=== PATIENT | female | born 1995 ===

== ENCOUNTER 2017-10-23 22:09 | Emergency (ER) | payer MEDICAID ==
[2017-10-23 22:09] VITALS: BMI 28.6
[2017-10-23] MEDS ORDERED: Lactated Ringer's 1,000 ML IV STA (22:59)
[2017-10-23] MEDS ORDERED: Dextrose 5%/Lactated Ringer's 1,000 ML IV SCH (23:00)
--- NOTE | 2017-10-23 23:05 | ED PDOC ---
HPI: Abdomen Time Seen by Provider: 10/23/17 22:31 Chief Complaint (Nursing): Abdominal Pain Chief Complaint (Provider): Abdominal pain History Per: Patient History/Exam Limitations: no limitations Onset/Duration Of Symptoms: Days (2), Persistent Location Of Pain/Discomfort: Diffuse Quality Of Discomfort: "Pain" Associated Symptoms: Nausea, Vomiting, Loss Of Appetite. denies: Fever, Chills , Urinary Symptoms Last Menstral Period: August, , September had spotting but no full period Past Medical History Reviewed: Historical Data, Nursing Documentation, Vital Signs Vital Signs: Last Vital Signs Temp 98.6 F 10/24/17 01:58 Pulse 68 10/24/17 01:58 Resp 16 10/24/17 01:58 BP 112/68 10/24/17 01:58 Pulse Ox 98 10/24/17 01:58 - Medical History PMH: No Chronic Diseases - Surgical History Surgical History: - Family History Family History: States: Diabetes - Social History Current smoker - smoking cessation education provided: No - Immunization History Hx Tetanus Toxoid Vaccination: No Hx Influenza Vaccination: No Hx Pneumococcal Vaccination: No - Home Medications Home Medications: Ambulatory Orders Medication Instructions Recorded oxyCODONE/Acetaminophen [Percocet 1 - 2 tab PO Q6 PRN #20 tab 09/10/14 5/325 mg Tab] Naproxen [Naprosyn] 500 mg PO Q12 PRN #20 tablet 05/03/17 - Allergies Allergies/Adverse Reactions: Allergies Allergy/AdvReac Type Severity Reaction Status Date / Time No Known Allergies Allergy Verified 05/02/17 23:54 Review of Systems ROS Statement: Except As Marked, All Systems Reviewed And Found Negative (and as per HPI) Cardiovascular: Positive for: Light Headedness Gastrointestinal: Positive for: Nausea, Vomiting, Abdominal Pain Neurological: Positive for: Dizziness Physical Exam - Reviewed Nursing Documentation Reviewed: Yes Vital Signs Reviewed: Yes - Physical Exam Appears: Positive for: Non-toxic, No Acute Distress Head Exam: Positive for: ATRAUMATIC, NORMOCEPHALIC Skin: Positive for: Warm, Dry Eye Exam: Positive for: EOMI, PERRL ENT: Negative for: Pharyngeal Erythema, Tonsillar Exudate Neck: Positive for: Painless ROM, Supple Cardiovascular/Chest: Positive for: Regular Rate, Rhythm. Negative for: Murmur Respiratory: Positive for: Normal Breath Sounds. Negative for: Wheezing Gastrointestinal/Abdominal: Positive for: Soft. Negative for: Tenderness, Mass , Distended, Guarding, Rebound Back: Positive for: Normal Inspection. Negative for: Decreased ROM Extremity: Positive for: Normal ROM. Negative for: Deformity Lymphatic: Negative for: Adenopathy Neurologic/Psych: Positive for: Alert. Negative for: Motor/Sensory Deficits - Laboratory Results Result Diagrams: 10/23/17 23:11 - ECG O2 Sat by Pulse Oximetry: 99 Disposition - Clinical Impression Clinical Impression: Abdominal pain during - Patient ED Disposition Is Patient to be Admitted: Transfer of Care - Disposition Disposition: Transfer of Care Disposition Time: 00:00 Condition: STABLE Patient Signed Over To: Isaac Ricardo Handoff Comments: Pending ER workup, reassessment and final ER disposition
[2017-10-23 23:19] LABS: HEMOGLOBIN 11.9 g/dL (12.0-16.0); MEAN CORPUSCULAR HEMOGLOBIN 29.5 pg (27.0-31.0); RBC 4.02 Mil/uL (3.80-5.20); WHITE BLOOD COUNT 11.1 K/uL (4.8-10.8)
[2017-10-23 23:20] LABS: BASO # 0.1 K/uL (0.0-0.2); BASO % 1.3 % (0.0-2.0); EOS # 0.2 K/uL (0.0-0.7); EOS % 2.2 % (0.0-4.0); LYMPH # 3.9 K/uL (1.0-4.3); LYMPH % 34.9 % (20.0-40.0); MEAN CORPUSCULAR HGB CONC 34.3 g/dL (33.0-37.0); MEAN PLATELET VOLUME 7.6 fl (7.2-11.7); MONO # 0.9 K/uL (0.0-0.8); MONO % 8.3 % (0.0-10.0); NEUT # 5.9 K/uL (1.8-7.0); NEUT % 53.3 % (50.0-75.0); NRBC % 0.1 % (0.0-0.0); RED CELL DISTRIBUTION WIDTH 13.2 % (11.5-14.5)
--- NOTE | 2017-10-24 00:15 | ED PDOC ---
- Laboratory Results Result Diagrams: 10/23/17 23:11 - ECG O2 Sat by Pulse Oximetry: 99 (RA) Pulse Ox Interpretation: Normal Medical Decision Making Medical Decision Making: Time: 00:00 --Patient is endorsed to provider from Dr. Marisa Braswell. Pending US OB transvaginal results. Time: 1241 --US OB FINDINGS: Gestation: There is single intrauterine gestational sac with presence of yolk sac, pole The heart motion at the rate of 131 beats per minute. Estimated gestational age calculated from [place] rump length is estimated to be 6 weeks 3 days. The gestational age calculated from mean sac diameter is estimated to BE 7 weeks. The yolk sac measures 0.4 cm. Uterus/cervix: The cervix is closed and measures 5.0 cm. Ovaries: The right ovary measures 2.9 x 2.6 x 2.4 cm. The left ovary measures 2.5 x 1.9 x 2.1 cm. Duplex assessment demonstrates presence of color Doppler signal and spectral Doppler waveform in right ovary. Duplex assessment demonstrates presence of color Doppler signal and spectral Doppler waveform in left ovary. No mass. Free fluid: No free fluid. IMPRESSION: 1. IUP as described Time: 0140 --Labs: no significant abnormalities. --Upon provider reevaluation, patient is medically stable, continues to feel well and requires no further treatment in the ED at this time. Patient will be discharged home. Counseling was provided and all questions were answered regarding diagnosis and need for follow up with [facility]. There is agreement to discharge plan. Return if symptoms persist or worsen. Clinical Impression: Abdominal pain during Scribe Attestation: Documented by Xin Ponce, acting as a scribe for Isaac Ricardo MD. Provider Scribe Attestation: All medical record entries made by the Scribe were at my direction and personally dictated by me. I have reviewed the chart and agree that the record accurately reflects my personal performance of the history, physical exam, medical decision making, and the department course for this patient. I have also personally directed, reviewed, and agree with the discharge instructions and disposition. Disposition Counseled Patient/Family Regarding: Studies Performed, Diagnosis, Need For Followup - Clinical Impression Clinical Impression: Abdominal pain during - POA Present On Arrival: None - Disposition Disposition: Routine/Home Disposition Time: 01:40 Condition: STABLE Instructions: Symptoms Forms: [employer] (Khmer)
[2017-10-24 01:59] VITALS: BP 112/68; PULSE 68; RESP 16; TEMP 98.6
--- NOTE | 2017-10-24 09:50 | US ---
PROCEDURE: First trimester ultrasound HISTORY: PREG PELVIC PAIN COMPARISON: None available. TECHNIQUE: Standard protocol for this study/examination. FINDINGS: LMP: Unknown. Prior examinations from the current : None TECHNIQUE: Real-time 2D imaging, duplex and color Doppler. FINDINGS: Cardiac activity: Present Rate: 130 BPM Measurements: [place] rump length: 0.57 cm Gestational age based on CRL 6 weeks 2 days Gestational age 7 weeks based on gestational sac measurement 2.42 cm Gestational age derived from LMP: Cannot be ascertained based in the absence of a reliable/ known LMP BRANDI based on LMP: Cannot be ascertained based in the absence of a reliable/ known LMP BRANDI based on biometry: 6 weeks 5 days Gestational concordance documented Yolk sac identified Uterus: Unremarkable. Cervix: No Cervical abnormalities: Negative examination for cervical dilatation or effacement. Closed cervix measuring 4.96 cm Subchorionic hemorrhage: None UTERUS: 5.5 x 6.4 x 12.5 cm. ADNEXA: Right: 2.4 x 2.6 x 2.9 cm. Normal Doppler arterial waveform documented. Left: 1.9 x 2.5 x 2.1 cm. Normal Doppler arterial waveform documented Fluid in the cul-de-sac: None. IMPRESSION: 6 weeks 5 days live intrauterine gestation. Gestational concordance cannot be determined in the absence of reliable LMP. Concordant results (preliminary interpretation) provided by [facility]. Procedure Completed: 00:17 Preliminary ([facility]) Report: Dictated and Authenticated: 00:41 Final Interpretation: 09:48 October 24, 2017.
[2017-10-26 14:25] VITALS: O2SAT 99
== END 2017-10-24 02:01 | disposition home or self-care (01) ==
LOC: H.ER 22:09
DX: O26.899 Other specified pregnancy related conditions, unspecified trimester (principal); O21.9 Vomiting of pregnancy, unspecified
CPT/HCPCS: 76815; 81025; 84702; 85025; 96360; 99283; J7120

== ENCOUNTER 2018-11-01 19:22 | Emergency (ER) | payer MEDICAID ==
[2018-10-15 17:06] VITALS: BMI 28.6
[2018-11-01] MEDS ORDERED: Bismuth Subsalicylate 262 mg Chew Tab PO PRN (19:45)
[2018-11-01] MEDS ORDERED: POLYETHYLENE GLYCOL 3350 17 GM/Dose PACKET PO ONE (20:00)
--- NOTE | 2018-11-01 22:16 | OBHP ---
Datetime: 11/01/2018 19:48 IP Chief Complaint Other: Abdominal discomfort IP Admit Plan: Observation/Evaluation Admit Comment, IP Provider: HPI: Jeannine is a 22 year old at 20.0 weeks who presents with compla ints of abrupt onset abdominal discomfort and stomach upset. It began about 2 hours ago with some gen eralized abdominal cramping and nausea. She tried to get her nails done but the pain was too severe, so she presented here. Denies any vomiting, subjective fever and chills. Denies dysuria, urinary freq uency or cloudy/foul smelling urine. This cramping does not feel like contractions to her. She has be en having constipation recently and did have a hard BM today, after which she noted a small amount of blood on the toilet paper and then in her underwear. She does not believe this is vaginal bleeding. Problems Denies History 1 previous delivery via , 1 SAB PMH Denies PSH x1 Medications PNV Allergies NKDA Social No tobacco, alcohol or drug use Family History Not significant PHYSICAL EXAM See exam section labs unavailable ASSESSMENT/PLAN: 22 year old at 20.0 weeks here with GI upset. No red flag symptoms on histor y or physicial to suggest an acute abdomen or acute intraabdominal emergency. Her symptoms seem consi stent with her history of reported constipation vs dyspepsia. She was given peptobismol with good rel ief and one dose of Miralax to help with her constipation. Her rectal bleeding was evaluated and no s ignificant pathology was found, no signs of a significant GI bleed. Bleeding likely d/t small anal te ar from constipation vs internal hemorrhoids. - Discussed fiber and Miralax for constipation - Discussed return precautions for her abdominal pain - Doppler was appropriate for gestationl age - Patient discharged in stable condition Plan discussed with attending, Dr. Jamil. Mary Olievr MD OB Fellow Addendum by Dr. Jamil: I have evaluated the patient independently and I agree with the above FHR - Baseline A Provider: 155 Comments, ACOG Physical Exam: Patient appears alert and oriented, no acute distress Mucous membranes moist Normal BS, abdomen is soft and nondistended, uterus is palpable at the umbilicus. Tenderness to pa lpation in all 4 quadrants but more so in the R upper and lower quadrant There is a small skintag visible at the anus, no obvious external hemorrhoids Gestation - Est Wks by US: 20.0 Vital Signs Provider: Reviewed; Within Normal Limits
--- NOTE | 2018-11-01 22:16 | OBDCSUM ---
Datetime: 11/01/2018 20:35 Discharged to, Provider: Home Follow up at, Provider: [facility] Instr Activity: Normal activity Disch Instr Diet: Regular Discharge Time: 11/01/2018 20:35 Follow up in weeks, Provider: Brooklynn altman Disch Referrals: None Discharge Diagnosis Prov Other: Gatroenteritis
[2018-11-02 00:44] VITALS: BP 121/52; PULSE 101
== END 2018-11-01 20:34 | disposition home or self-care (01) ==
LOC: H.EROB2 19:22
DX: O26.92 Pregnancy related conditions, unspecified, second trimester (principal); R10.2 Pelvic and perineal pain; R11.0 Nausea; Z3A.20 20 weeks gestation of pregnancy; Z87.59 Personal history of other complications of pregnancy, childbirth and the puerperium

== ENCOUNTER 2018-11-02 04:23 | Emergency (ER) | payer MEDICAID ==
[2018-11-02 04:23] VITALS: BMI 28.6
[2018-11-02 05:35] LABS: BASO # 0.1 K/uL (0.0-0.2); BASO % 0.5 % (0.0-2.0); EOS % 0.3 % (0.0-4.0); LYMPH # 0.8 K/uL (1.0-4.3); LYMPH % 7.1 % (20.0-40.0); MEAN CELL VOLUME 86.3 fl (81.0-99.0); MEAN CORPUSCULAR HEMOGLOBIN 29.9 pg (27.0-31.0); MEAN CORPUSCULAR HGB CONC 34.7 g/dL (33.0-37.0); MEAN PLATELET VOLUME 7.9 fl (7.2-11.7); MONO # 0.8 K/uL (0.0-0.8); NEUT % 85.1 % (50.0-75.0); PLATELET COUNT 226 K/uL (130-400); RBC 3.68 Mil/uL (3.80-5.20); RED CELL DISTRIBUTION WIDTH 14.3 % (11.5-14.5); WHITE BLOOD COUNT 11.8 K/uL (4.8-10.8)
--- NOTE | 2018-11-02 05:36 | ED PDOC ---
HPI: Fever Time Seen by Provider: 11/02/18 04:40 Fever Onset Was: 11/02/18 Additional Comments: 22 years old female who is 19 weeks presents to ER for evaluation of fever, nausea and vomiting onset tonight. Patient reports one episode of vomiting and felt febrile at home. She states she did not take any medications because she is and does not know what is safe for the baby. Patient tolerating small amounts of water. She denies vaginal bleeding or discharge, abdominal pain, or pain with urination. PMD: None provided Past Medical History Reviewed: Historical Data, Nursing Documentation, Vital Signs Vital Signs: Last Vital Signs Temp 100.1 F H 11/02/18 04:37 Pulse 127 H 11/02/18 04:37 Resp 19 11/02/18 04:37 BP 113/65 11/02/18 04:37 Pulse Ox 99 11/02/18 04:37 - Medical History PMH: No Chronic Diseases - Surgical History Surgical History: - Family History Family History: States: Diabetes - Immunization History Hx Tetanus Toxoid Vaccination: No Hx Influenza Vaccination: No Hx Pneumococcal Vaccination: No - Home Medications Home Medications: Ambulatory Orders Medication Instructions Recorded oxyCODONE/Acetaminophen [Percocet 1 - 2 tab PO Q6 PRN #20 tab 09/10/14 5/325 mg Tab] Naproxen [Naprosyn] 500 mg PO Q12 PRN #20 tablet 05/03/17 - Allergies Allergies/Adverse Reactions: Allergies Allergy/AdvReac Type Severity Reaction Status Date / Time No Known Allergies Allergy Verified 11/02/18 04:41 Review of Systems ROS Statement: Except As Marked, All Systems Reviewed And Found Negative Constitutional: Positive for: Fever Gastrointestinal: Positive for: Nausea, Vomiting. Negative for: Abdominal Pain Genitourinary Female: Negative for: Dysuria, Vaginal Discharge, Vaginal Bleeding Physical Exam - Reviewed Nursing Documentation Reviewed: Yes Vital Signs Reviewed: Yes - Physical Exam Appears: Positive for: Non-toxic, No Acute Distress Head Exam: Positive for: ATRAUMATIC, NORMOCEPHALIC Skin: Positive for: Normal Color, Warm, Dry Eye Exam: Positive for: Normal appearance, EOMI, PERRL ENT: Positive for: Normal ENT Inspection Neck: Positive for: Normal, Painless ROM, Supple Cardiovascular/Chest: Positive for: Regular Rate, Rhythm. Negative for: Murmur Respiratory: Positive for: Normal Breath Sounds. Negative for: Respiratory Distress Gastrointestinal/Abdominal: Positive for: Normal Exam, Soft, Other (Gravid below the umbilicus). Negative for: Tenderness Back: Positive for: Normal Inspection. Negative for: L CVA Tenderness, R CVA Tenderness Neurological/Psych: Positive for: Awake, Alert, Oriented (x3) - Laboratory Results Result Diagrams: 11/02/18 05:15 11/02/18 05:15 - ECG O2 Sat by Pulse Oximetry: 99 (RA) Pulse Ox Interpretation: Normal Medical Decision Making Medical Decision Making: Time: 0506 MDM: fever and one episode of vomiting in patient --Zofran for vomiting --Tylenol --UA --Labs --Reassess patient 0700 Labs unremarkable. Symptoms resolved with Tylenol and Zofran. Pt encouraged to take Tylenol for fever. Pt to follow up with [facility] within one week. Return parameters discussed. Scribe Attestation: Documented by Macrina Monroy, acting as a scribe for Amelia Poon MD. Provider Scribe Attestation: All medical record entries made by the Scribe were at my direction and personally dictated by me. I have reviewed the chart and agree that the record accurately reflects my personal performance of the history, physical exam, medical decision making, and the department course for this patient. I have also personally directed, reviewed, and agree with the discharge instructions and disposition. Disposition - Clinical Impression Clinical Impression: Vomiting, Fever - Patient ED Disposition Is Patient to be Admitted: No - Disposition Disposition: Routine/Home Disposition Time: 07:00 Condition: IMPROVED Additional Instructions: Follow up with [facility]. Take Tylenol for fever. Return to the emergency department if symptoms worsen or if new symptoms develop. Instructions: Nausea and Vomiting, Adult (DC), Fever, Adult (DC) Forms: [employer] (French) Print Language: [place]
[2018-11-02 05:38] LABS: SQUAMOUS EPITHIAL 6 /hpf (0-5); URINE BACTERIA RARE (<OCC); URINE BILIRUBIN NEGATIVE (NEGATIVE); URINE BLOOD NEGATIVE (NEGATIVE); URINE CLARITY CLOUDY (Clear); URINE COLOR YELLOW (YELLOW); URINE GLUCOSE (UA) NEG (NEGATIVE); URINE LEUKOCYTE ESTERASE NEG Leu/uL (Negative); URINE PROTEIN NEGATIVE (NEGATIVE); URINE UROBILINOGEN 0.2-1.0 mg/dL (0.2-1.0)
[2018-11-02 05:40] LABS: ALB/GLOB RATIO 1.3 (1.0-2.1); ALBUMIN 4.1 g/dL (3.5-5.0); ALT/SGPT 61 U/L (9-52); AST/SGOT 40 U/L (14-36); BLOOD UREA NITROGEN 5 mg/dl (7-17); CALCIUM 9.4 mg/dL (8.4-10.2); GFR NON-AFRICAN AMERICAN > 60
[2018-11-02 06:43] LABS: ANISOCYTOSIS SLIGHT; BANDS 3 % (0-2); HYPOCHROMIC SLIGHT; LYMPHOCYTE 7 % (20-50); MONOCYTE 3 % (0-10); NEUTROPHIL 87 % (42-75); PLATELET ESTIMATE NORMAL (NORMAL); TOTAL CELLS COUNTED 100
[2018-11-02 08:10] VITALS: BP 110/62; PULSE 99; RESP 20; TEMP 98.9
[2018-11-02 21:10] VITALS: O2SAT 99
== END 2018-11-02 07:44 | disposition home or self-care (01) ==
LOC: H.ER 04:23
DX: O21.0 Mild hyperemesis gravidarum (principal); O26.92 Pregnancy related conditions, unspecified, second trimester; Z3A.19 19 weeks gestation of pregnancy
CPT/HCPCS: 80053; 81003; 85025; 96374; 99283; J2405

== ENCOUNTER 2018-11-11 22:51 | Emergency (ER) | payer MEDICAID ==
[2018-11-11 23:26] VITALS: BMI 28.8
[2018-11-12 00:01] LABS: SQUAMOUS EPITHIAL 3 /hpf (0-5); URINE BILIRUBIN NEGATIVE (NEGATIVE); URINE BLOOD MODERATE (NEGATIVE); URINE CLARITY CLOUDY (Clear); URINE COLOR YELLOW (YELLOW); URINE GLUCOSE (UA) NEG (NEGATIVE); URINE LEUKOCYTE ESTERASE MOD Leu/uL (Negative); URINE PROTEIN 100 mg/dL (NEGATIVE); URINE UROBILINOGEN 0.2-1.0 mg/dL (0.2-1.0)
--- NOTE | 2018-11-12 01:16 | OBHP ---
Datetime: 11/11/2018 23:40 IP Adm Impression: No Active Labor IP Chief Complaint Other: abd pressure/dysurea IP Admit Plan: Observation/Evaluation; Discharge home Admit Comment, IP Provider: 22 y/o female at 21.4 weeks GA presents to [facility] w/ c/o suprapubic p ressure "radiating to vagina," dysurea, increased frequency and urgency. She endorses movement. Denies vaginal bleeding/abdominal cramping/fever/n/v. She was last sexually active 4 days ago. OB: [facility]/ Dr. Oliver OBhx: c-sectionx 1 due to failure to dilate, miscarriage x 1 Pmhx: denies HomeRx: vitamins Allergies: NKDA Surgeries: Famhx: Father w/ hx of DM Socialhx: denies toxic habits ROS: all systems reviewed and negative except per HPI Physical Exam: Gen: Lying in bed, comfortably. NAD. Heart: S1 S2 present, RRR Lungs: normal breathing pattern. Clear to ascultation bilaterally Abd: Gravid, normal bowel sounds, soft/non-tender Back: no flank tenderness Extremities: no calf tenderness/swelling/erythema Psych: Good eye contact, cooperative Assessment and Plan 22 y/o female at 21.4 weeks GA IUP Suprapubic pressure and dysurea Doppler at bedside shows FHR 154. TOCO no contractions Will check U/A 12:21AM U/A showed moderate leukocyte esterase, +RBC, + Protein. Urine culture sent Patient advised to start Macrobid 100mg PO BIDx 7 days Patient is stable for discharge to home w/ instructions to follow up w/ OB. She has an appointment tomorrow. Case discussed w/ attending, Dr. Omero Alicia, pgyi Addendum by Dr. Jamil: I have evaluated the patient independently and I agree with the above Pelvic Type - PN: Not Done Extremities - PN: Normal Abdomen - PN: Normal Back - PN: Normal Breast - PN: Not Done Lungs - PN: Normal Heart - PN: Normal Thyroid - PN: Not Done Neurologic - PN: Normal HEENT - PN: Normal General - PN: Normal FHR - Baseline A Provider: 154 Gestation - Est Wks by US: 21.4 IP Hx Assessment: The History has been Reviewed and is Current EGA AdmitDate IP: 21.3 Vital Signs Provider: Reviewed; Within Normal Limits IP Chief Complaint: Other Genitourinary Exam: Not Done DTRs - PN: Normal
--- NOTE | 2018-11-12 01:16 | OBDCSUM ---
Datetime: 11/12/2018 00:31 Discharged to, Provider: Home Follow up at, Provider: clinic Disch Instr Activity: Normal activity Disch Instr Diet: Regular Discharge Time: 11/12/2018 00:32 Follow up in weeks, Provider: today 11/12/18 at 2 15 pm Disch Referrals: None Disch Activity Restrictions: Minimize stair-climbing; No sexual activity; Nothing in vagina - Interc ourse, tampons, douche Discharge Diagnosis Prov Other: UTI
[2018-11-12 05:50] VITALS: BP 102/53; PULSE 90
== END 2018-11-12 00:40 | disposition home or self-care (01) ==
LOC: H.EROB2 22:51
DX: O26.92 Pregnancy related conditions, unspecified, second trimester (principal); R10.2 Pelvic and perineal pain; R30.0 Dysuria; Z3A.21 21 weeks gestation of pregnancy